=== PATIENT | female | born 2000 | race Caucasian/White ===

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

== ENCOUNTER 2021-04-15 16:00 | Inpatient (IN) | payer OTHER, MEDICAID, SELFPAY ==
[2021-04-15] VITALS (66 sets, daily range): BP systolic 94–137; BP diastolic 40–97; PULSE 74–122; TEMP 36.4–36.9; O2SAT 98–100; BMI 32.0
--- NOTE | 2021-04-15 16:28 | LDADM ---
This patient, ePnelope Melgar, was admitted to Labor/Delivery/Recovery 104 on 04/15/21 at 16:00. Plans for labor, pain management and were discussed with patient. Patient/family oriented to hospital policies and general routines including ID bracelet, bed and alarms, visiting hours, pain management, procedures, bathroom and other care routines, personal items, smoking policy, room service/diet and guest tray routines, infant security routines, and visiting hours. Patient/Family are encouraged to report perceived risks to care and to ask questions if they do not understand what they are told or what they should do. See OBIX for further documentation.
[2021-04-15 16:34] LABS: Basophils Percent Auto 0.4 % (0.2-1.2); Eosinophils Absolute Auto 0.2 K/mm3 (0-0.3); Eosinophils Percent Auto 1.7 % (0-4.4); Hematocrit 34.2 % (37.0-47.0); Hemoglobin 11.2 g/dL (12.0-15.0); Immature Granulocyte Absolute 0.08 K/mm3 (0.00-0.031); Immature Granulocyte Percent A 0.8 % (0-0.5); Lymphocytes Absolute Auto 2.22 K/mm3 (0.9-3.2); Lymphocytes Percent Auto 21.6 % (18.3-44.2); Mean Corpuscular HGB Conc 32.7 g/dl (32-36); Mean Corpuscular Hemoglobin 27.1 pg (26-34); Mean Corpuscular Volume 82.8 fl (80-100); Mean Platelet Volume 9.3 fl (7.4-10.4); Monocytes Absolute Auto 1.3 K/mm3 (0.1-0.6); Monocytes Percent Auto 12.5 % (2.6-8.5); Neutrophils Absolute Auto 6.5 K/mm3 (1.3-6.7); Platelet Count Result 285 k/mm3 (150-375); Red Blood Count 4.13 M/mm3 (4.2-5.4); Red Cell Distribution Width 13.7 % (11.5-14.5); White Blood Count 10.3 K/mm3 (4.5-10.0)
[2021-04-15] MEDS: LACTATED RINGERS 1,000 ML 125 ML IV CONT ×3 (17:02→23:20)
[2021-04-15] MEDS: OXYTOCIN 30 UNITS/NS 500 ML 30 UNITS/500 ML BAG 6 UNITS IV CONT (17:03)
[2021-04-15 18:05] LABS: Amphetamine Screen Urine Negative (Negative); Barbiturate Screen Urine Negative (Negative); Benzodiazepines Screen Urine Negative (Negative); Cannabinoid Screen Urine Negative (Negative); Cocaine Screen Urine Negative (Negative); Methadone Screen Urine Negative (Negative); Opiate Screen Urine Negative (Negative); Phencyclidine Screen Urine Negative (Negative)
--- NOTE | 2021-04-15 20:54 | WPDANESEPP ---
Anes - Eval Pre Procedure Procedure: labor epidural Date/Time: 04/15/21 20:54 Surgeon: letha Pre Op Diagnosis: IOL Patient Data Age: 21 Gender: F Height: 1.57 m Weight: 79.5 kg Last Vital Signs Temp 36.4 C 04/15/21 19:00 Pulse 90 04/15/21 20:30 BP 137/72 04/15/21 20:30 Allergies Allergy/AdvReac Type Severity Reaction Status Date / Time No Known Allergies Allergy Verified 11/06/20 23:10 Home Medications Medication Instructions Recorded Confirmed Type PNV cmb#95-ferrous fumarate-FA 1 tablet PO DAILY 03/23/21 03/23/21 History [] Laboratory Tests 04/15/21 04/15/21 04/15/21 16:20 16:20 16:20 WBC 10.3 K/mm3 H K/mm3 (4.5-10.0) RBC 4.13 M/mm3 L M/mm3 (4.2-5.4) Hgb 11.2 g/dL L g/dL (12.0-15.0) Hct 34.2 % L % (37.0-47.0) MCV 82.8 fl fl (80-100) MCH 27.1 pg pg (26-34) MCHC 32.7 g/dl g/dl (32-36) RDW 13.7 % % (11.5-14.5) Plt Count 285 k/mm3 k/mm3 (150-375) MPV 9.3 fl fl (7.4-10.4) Immature Gran % (Auto) 0.8 % H % (0-0.5) Neut % (Auto) 63.0 % % (45.5-73.1) Lymph % (Auto) 21.6 % % (18.3-44.2) [place] % (Auto) 12.5 % H % (2.6-8.5) Eos % (Auto) 1.7 % % (0-4.4) Baso % (Auto) 0.4 % % (0.2-1.2) Lymph # (Auto) 2.22 K/mm3 K/mm3 (0.9-3.2) [place] # (Auto) 1.3 K/mm3 H K/mm3 (0.1-0.6) Eos # (Auto) 0.2 K/mm3 K/mm3 (0-0.3) Baso # (Auto) 0.0 K/mm3 K/mm3 (0.0-0.1) Abs Immat Gran (auto) 0.08 K/mm3 H K/mm3 (0.00-0.031) Absolute Neuts (auto) 6.5 K/mm3 K/mm3 (1.3-6.7) Absolute Nucleated RBC 0.0 K/mm3 K/mm3 (0.0-0.012) Nucleated RBC % 0.0 % % (0.0-0.2) Urine Opiates Screen Urine Methadone Screen Ur Barbiturates Screen Ur Phencyclidine Scrn Ur Amphetamine Screen U Benzodiazepines Scrn Urine Cocaine Screen U Cannabinoids Screen RPR Pending Blood Type A Positive Antibody Screen Positive Antibody Identification Pending Antigen Identification Pending JHON, IgG Interpret Pending JHON, Poly Interpret Pending JHON, Complement Interp Pending 04/15/21 17:17 WBC RBC Hgb Hct MCV MCH MCHC RDW Plt Count MPV Immature Gran % (Auto) Neut % (Auto) Lymph % (Auto) [place] % (Auto) Eos % (Auto) Baso % (Auto) Lymph # (Auto) [place] # (Auto) Eos # (Auto) Baso # (Auto) Abs Immat Gran (auto) Absolute Neuts (auto) Absolute Nucleated RBC Nucleated RBC % Urine Opiates Screen Negative (Negative) Urine Methadone Screen Negative (Negative) Ur Barbiturates Screen Negative (Negative) Ur Phencyclidine Scrn Negative (Negative) Ur Amphetamine Screen Negative (Negative) U Benzodiazepines Scrn Negative (Negative) Urine Cocaine Screen Negative (Negative) U Cannabinoids Screen Negative (Negative) RPR Blood Type Antibody Screen Antibody Identification Antigen Identification JHON, IgG Interpret JHON, Poly Interpret JHON, Complement Interp Patient hx anesthesia problems: none Family hx anesthesia problems: none Results Review: All pre-operative results and documents have been reviewed as part of the pre-operative evaluation. [facility] Family History Family History (Updated 03/23/21 @ 12:34 by Jeana Eisenberg RN) Other No pertinent family history Social History Social History (Updated 11/06/20 @ 23:14 by Aneudy Mendez PA-C) Smoking status: Former smoker Tobacco type: e-cigarettes/vaping Substance use: elsy
[2021-04-16] VITALS (125 sets, daily range): BP systolic 88–142; BP diastolic 43–80; PULSE 76–163; RESP 12–18; TEMP 36.5–37.1; O2SAT 98–100
[2021-04-16] MEDS: LACTATED RINGERS 1,000 ML 125 ML IV CONT ×2 (00:28→03:12)
--- NOTE | 2021-04-16 04:43 | WPDOBADMIT ---
Obstetrics - Admit Note Admission Note: record reviewed. No pertinent additions to the history and/or any subsequent changes in the physical findings that are not consistent with the expected course of the were found. Additions to the history and/or subsequent changes in the physical findings follow. Here at 39 wks for MIL. Cervix on admit so pitocin started instead of cervadil. On my arrival, c/p. FHTs with variables
--- NOTE | 2021-04-16 04:44 | PM.OBPRVD ---
OB - Delivery Note Procedure Delivery date: 04/16/21 Procedure: events: Labor Induction Intrapartal events: Other (shoulder dystocia relieved by Vikas) Induction method: AROM and per pitocin protocol Delivery monitor: external FHT and external uterine Route of delivery: Laceration Description: Perineal - 2nd Degree Delivery repair: vicryl (3-0) Specimen: Yes (placenta) Quantitative Blood Loss (ml): 200 Anesthesia type: Epidural Disposition: floor [facility] Baby Date of : 04/16/21 Weeks of gestation at delivery: 39 gender: Male Weight (pounds): 8 Weight (ounces): 5 presentation: vertex position: Right Occiput Anterior (with left shoulder anterior) Placenta delivery description: Spontaneous cord vessel description: 3 Vessels score one minute: 9 score five minutes: 9
--- NOTE | 2021-04-16 04:46 | PM.OBDSVD ---
DS: Admitting Diagnosis Discharge Date 04/17/21 Admitting Diagnosis IUP 39 wks MIL DS: Discharge Diagnosis Discharge Diagnosis (1) (normal spontaneous vaginal delivery): Code(s): O80 - Encounter for full-term uncomplicated delivery Status: Acute OB - DS: Summary OB Procedures : Ultrasound OB Procedures Intrapartum: Spontaneous Vag Delivery OB Procedures: : None Peripartum Data Infant Delivery Method: Natural Vaginal Laceration Description: Perineal - 2nd Degree complications: none Status at Discharge Functional status at discharge: independent ambulation Overall status at discharge: patient is progressing back to baseline Time Spent with Patient Time attestation: Total time spent providing and/or coordinating discharge services: DS: Data Data Completed and Pending Labs on day of discharge: Labs from last 24 hours 04/15/21 04/15/21 04/15/21 17:17 16:20 16:20 WBC RBC Hgb Hct MCV MCH MCHC RDW Plt Count MPV Immature Gran % (Auto) Neut % (Auto) Lymph % (Auto) [place] % (Auto) Eos % (Auto) Baso % (Auto) Lymph # (Auto) [place] # (Auto) Eos # (Auto) Baso # (Auto) Abs Immat Gran (auto) Absolute Neuts (auto) Absolute Nucleated RBC Nucleated RBC % Urine Opiates Screen Negative Urine Methadone Screen Negative Ur Barbiturates Screen Negative Ur Phencyclidine Scrn Negative Ur Amphetamine Screen Negative U Benzodiazepines Scrn Negative Urine Cocaine Screen Negative U Cannabinoids Screen Negative RPR Pending Blood Type A Positive Antibody Screen Positive Antibody Identification Anti-Jake A Antigen Identification Cancelled JHON, IgG Interpret Negative JHON, Poly Interpret Negative JHON, Complement Interp Not Performed 04/15/21 16:20 WBC 10.3 H RBC 4.13 L Hgb 11.2 L Hct 34.2 L MCV 82.8 MCH 27.1 MCHC 32.7 RDW 13.7 Plt Count 285 MPV 9.3 Immature Gran % (Auto) 0.8 H Neut % (Auto) 63.0 Lymph % (Auto) 21.6 [place] % (Auto) 12.5 H Eos % (Auto) 1.7 Baso % (Auto) 0.4 Lymph # (Auto) 2.22 [place] # (Auto) 1.3 H Eos # (Auto) 0.2 Baso # (Auto) 0.0 Abs Immat Gran (auto) 0.08 H Absolute Neuts (auto) 6.5 Absolute Nucleated RBC 0.0 Nucleated RBC % 0.0 Urine Opiates Screen Urine Methadone Screen Ur Barbiturates Screen Ur Phencyclidine Scrn Ur Amphetamine Screen U Benzodiazepines Scrn Urine Cocaine Screen U Cannabinoids Screen RPR Blood Type Antibody Screen Antibody Identification Antigen Identification JHON, IgG Interpret JHON, Poly Interpret JHON, Complement Interp Discharge Plan Discharge Attending physician on discharge: Carolyn Waite Discharging Clinician: Carolyn Waite Anticipated Discharge Date/Time: 04/18/21 04:47 Patient Disposition: Home, Self-Care Activity: may shower and pelvic rest Diet: regular Patient Instructions: Antibiotic Form Stand Alone Forms: General Discharge Information Follow-up/Referrals: Carolyn Waite MD [Physician] - 6 Weeks Discharge Medications: New norethindrone-e.estradiol-iron [Minastrin 24 Fe] 1 mg-20 mcg(24) /75 mg (4) tablet,chewable 1 tablet PO DAILY Qty: 28 RF: 5 Continued PNV cmb#95-ferrous fumarate-FA [] 28 mg iron- 800 mcg Tablet 1 tablet PO DAILY RF: 0 Date of admission: 04/15/21 16:00 Primary Care Provider: PHYSICIAN,ASSEMBLING INSPECTOR Admitting Provider: Carolyn Waite Attending physician on admission: Carolyn Waite Condition: Stable
[2021-04-16] MEDS: OXYTOCIN 30 UNITS/NS 500 ML 30 UNITS/500 ML BAG 125 UNITS IV CONT (04:56)
[2021-04-16] MEDS: WITCH HAZEL 40 PADS 1 PAD TOPICAL (05:44)
[2021-04-16] MEDS: BENZOCAINE 20% AER SPR (*SP) 56 GM CAN 1 SPRAY TOPICAL (05:44)
[2021-04-16] MEDS: IBUPROFEN 600 MG TABLET PO ×2 (08:08→19:07)
--- NOTE | 2021-04-16 08:52 | OBPPTRN ---
0716 Patient transferred to post room #284 via W/C. Support person present. Oriented to unit, room, information board, rooming in, admission packet and security measures. Patient verbalizes understanding.
[2021-04-16 12:44] LABS: Rapid Plasma Reagin Non-Reactive (NonReactive)
[2021-04-16] MEDS: DOCUSATE SODIUM 100 MG CAPSULE PO (16:49)
[2021-04-17 00:15] VITALS: BP 89/46; PULSE 92; RESP 18; TEMP 36.5
[2021-04-17 05:45] LABS: Hematocrit 27.8 % (37.0-47.0); Hemoglobin 9.1 g/dL (12.0-15.0)
--- NOTE | 2021-04-17 07:40 | PM.OBPNVD ---
OB - PN: Subj Subjective Date/time seen: 04/17/21 07:40 Patient comments: no complaints and pain well controlled baby status: doing well and bottle feeding well OB - PN: Obj Data Labs CBC & Chem 7: 04/17/21 05:29 Labs: Laboratory Results - last 24 hr 04/15/21 04/17/21 16:20 05:29 Hgb 9.1 L Hct 27.8 L RPR Non-reactive OB - PN A/P Plan day: 1 Plan: routine care, discharge home, follow up 6 weeks and other (Loestrin 24 for bc) Time Spent With Patient Time: Total time spent is greater than 50% in coordination of care (as documented) at patient's floor/unit and/or counseling patient: Exam : Bimanual exam- vagina & uterus: other (Uterus firm, nt @U)
[2021-04-17 08:13] VITALS: BP 117/70; PULSE 96; RESP 12; TEMP 36.6; O2SAT 98
[2021-04-17] MEDS: DOCUSATE SODIUM 100 MG CAPSULE PO (08:13)
[2021-04-17] MEDS: POLYSACCHARIDE IRON COMPLEX 150 MG CAPSULE PO (08:13)
[2021-04-17] MEDS: IBUPROFEN 600 MG TABLET PO (08:13)
--- NOTE | 2021-04-17 13:10 | WPDANLDPN2 ---
Anes-Prog Note L&D Date/Time: 04/17/21 13:10 Comfortable throughout: labor and delivery Neuraxial method: epidural Epidural/Spinal procedure site: clean & non-tender Neuro status: Neuro function grossly intact. Cardiovascular status: normal Respiratory status: normal Airway patency: baseline Mental status: baseline Post-Op hydration status: normal Vital Signs: Last Vital Signs Temp 36.6 C 04/17/21 08:13 Pulse 96 04/17/21 08:13 Resp 12 04/17/21 08:13 BP 117/70 04/17/21 08:13 Pulse Ox 98 04/17/21 08:13 Pain score (VAS): 1/10 Post-procedural complaints: none Patient feedback: Patient satisfied with anesthetic care.
[2021-04-18 11:16] VITALS: BP 130/70; PULSE 92; RESP 20; TEMP 36.9; O2SAT 98
== END 2021-04-17 14:47 | disposition home or self-care (01) | DRG 807 ==
LOC: ANHLDR 04-16 04:48 → ANHOB2 04-16 07:28
PROVIDERS: Admitting Provider Obstetrics & Gynecology Gynecology; Visit Provider Obstetrics & Gynecology Gynecology
DX: O36.8330 Maternal care for abnormalities of the fetal heart rate or rhythm, third trimester, not applicable or unspecified (principal); Z37.0 Single live birth; Z23 Encounter for immunization; Z87.891 Personal history of nicotine dependence; O66.0 Obstructed labor due to shoulder dystocia; O70.1 Second degree perineal laceration during delivery; Z3A.39 39 weeks gestation of pregnancy
CPT/HCPCS: 36415; 80307; 85014; 85018; 85025; 86592; 86850; 86880; 86900; 86901; 86902; 88307; 90471; 90653; A9270; G0008; J2590; J2795; J7120

== ENCOUNTER 2023-11-25 22:16 | Emergency (ER) | payer OTHER, SELFPAY ==
[2023-11-25 22:18] VITALS: BP 136/97; PULSE 103; RESP 16; TEMP 36.6; O2SAT 99
[2023-11-25 22:35] LABS: Basophils Percent Auto 0.1 % (0.2-1.2); Eosinophils Absolute Auto 0.2 K/mm3 (0-0.3); Eosinophils Percent Auto 1.3 % (0-4.4); Hematocrit 45.6 % (37.0-47.0); Hemoglobin 15.4 g/dL (12.0-15.0); Immature Granulocyte Absolute 0.08 K/mm3 (0.00-0.031); Immature Granulocyte Percent A 0.5 % (0-0.5); Lymphocytes Absolute Auto 1.47 K/mm3 (0.9-3.2); Lymphocytes Percent Auto 8.8 % (18.3-44.2); Mean Corpuscular HGB Conc 33.8 g/dl (32-36); Mean Corpuscular Hemoglobin 27.8 pg (26-34); Mean Corpuscular Volume 82.3 fl (80-100); Mean Platelet Volume 9.3 fl (7.4-10.4); Monocytes Absolute Auto 1.3 K/mm3 (0.1-0.6); Monocytes Percent Auto 7.8 % (2.6-8.5); Neutrophils Absolute Auto 13.7 K/mm3 (1.3-6.7); Neutrophils Percent Auto 81.5 % (45.5-73.1); Platelet Count Result 441 k/mm3 (150-375); Red Blood Count 5.54 M/mm3 (4.2-5.4); Red Cell Distribution Width 13.7 % (11.5-14.5); White Blood Count 16.8 K/mm3 (4.5-10.0)
[2023-11-25 22:46] LABS: Alanine Aminotransferase 14 U/L (6-35); Albumin Level 5.4 g/dL (3.5-5.1); Alkaline Phosphatase 92 U/L (38-126); Anion Gap 14 mmol/L (4-12); Aspartate Amino Transferase 23 U/L (14-36); Bilirubin,Total 0.6 mg/dL (0.2-1.3); Blood Urea Nitrogen 16 mg/dL (7-17); Carbon Dioxide 18 mmol/L (22-30); Chloride 109 mmol/L (98-107); Estimated CRCL calculation 98 ml/min; Estimated Glomerular Filt Rate > 60; Glucose 116 mg/dL (65-110); Lipase 44 U/L (23-300); Potassium 4.1 mmol/L (3.4-5.0); Sodium 141 mmol/L (137-145)
[2023-11-25 23:50] VITALS: BP 138/88; PULSE 93; TEMP 36.4; O2SAT 100
[2023-11-26 00:43] VITALS: BP 117/80; PULSE 94; RESP 16; O2SAT 97
[2023-11-26 01:22] LABS: Appearance Urine Cloudy (Clear); Bacteria Urine 2+ /hpf; Bilirubin Urine Negative (Negative); Blood Urine Trace (Negative); Color Urine Yellow (Yellow); Glucose Urine UA Negative (Negative); Ketones Urine Trace mg/dL (Negative); Leukocyte Esterase Ur 1+ LEU/UL (Negative); Nitrate Urine Negative (Negative); Non Pathogenic Casts 0-2; Protein Urine Trace mg/dL (Negative); RBC Urine 0-2 /hpf (0-2); Specific Grav Ur 1.014 (1.001-1.035); Squamous Epithelial Cell Urine Moderate /hpf (Few); Urobilinogen Urine 0.2 mg/dL (<2.0)
[2023-11-26 01:30] LABS: Add Urine Microscopic? YES
[2023-11-26] MEDS: SODIUM CHLORIDE 0.9% IV 2,000 ML 999 ML IV CONT (02:25)
[2023-11-26] MEDS: ONDANSETRON INJ 4 MG/2 ML VIAL IV PUSH (02:26)
[2023-11-26] MEDS: FAMOTIDINE 20 MG/2 ML VIAL IV PUSH (02:26)
--- NOTE | 2023-11-26 03:58 | ED.GENADULT ---
HPI - General Adult General Chief complaint: Abdominal Pain Stated complaint: vomit/diarrhea Time Seen by Provider: 11/26/23 01:50 History of Present Illness HPI narrative: This is a 23-year-old female presenting with 1 day of nausea vomiting and diarrhea. Symptoms started yesterday middle night. Patient has been unable to keep water down today. Symptoms have been gradually improving. She denies fevers chills chest pain difficulty breathing abdominal pain or urinary symptoms. Related Data Home Medications Medication Instructions Recorded Confirmed vit no.95-ferrous 1 tablet PO DAILY 03/23/21 03/23/21 fumarate 28 mg-folic acid 800 mcg tablet () Allergies Allergy/AdvReac Type Severity Reaction Status Date / Time No Known Allergies Allergy Verified 11/26/23 00:44 [facility] Family History Family History Other No pertinent family history Social History Social History Smoking status: Former smoker Tobacco type: e-cigarettes/vaping Substance use: never Gender identity (if verbalized by the patient): Female Spiritual care concerns: No Exam Narrative: APPEARANCE: No apparent distress. Head: atraumatic. EYES: EOMI, NOSE: Atraumatic NECK: Trachea midline RESPIRATORY: No increased rate of breathing Clear to auscultation CARDIOVASCULAR: RRR, ABDOMINAL: Non-distended, soft nontender no guarding or rebound MUSCULOSKELETAl: No obvious deformities NEURO: Alert. Moving 4/4 extremities SKIN:: Warm, dry. Normal color PSYCHIATRIC: Normal affect Course Vital Signs Vital signs: Vital Signs Temperature 97.8 F 11/25/23 22:18 Pulse Rate 103 H 11/25/23 22:18 Respiratory Rate 16 11/25/23 22:18 Blood Pressure 136/97 H 11/25/23 22:18 Pulse Oximetry 99 11/25/23 22:18 Oxygen Delivery Room Air 11/25/23 22:18 Temperature 97.6 F 11/25/23 23:50 Pulse Rate 94 11/26/23 00:43 Respiratory Rate 16 11/26/23 00:43 Blood Pressure 117/80 11/26/23 00:43 Pulse Oximetry 97 11/26/23 00:43 Oxygen Delivery Room Air 11/25/23 22:18 Medical Decision Making MDM Narrative Medical decision making narrative: -Course: 23-year-old female presenting with nausea vomiting and diarrhea. Patient given fluid resuscitation, Pepcid and Zofran with improvement in her symptoms. Abdominal exam is benign. White count is 16.8 but with no tenderness in the belly I am not concerned about serious infection. Additionally the patient is very well-appearing with normal vital signs. On re-evaluation the patient is resting comfortably. She feels much better and is now tolerating p.o.. Patient will be discharged with antiemetics and return precautions. urine had 11-20 white blood cells. However the patient has no urinary symptoms. Discussed treating for UTI versus waiting for culture results and patient like to wait -DDX includes but is not limited to: gastroenteritis, food poisoning, gastritis cholecystitis appendicitis colitis -Independent interpretation of studies: white count 16. -Interventions: 2 L normal saline, Zofran, Pepcid -Shared decision making / Disposition: discharged -RX zofran Vital Signs Vital Signs: Vital Signs Temperature 97.8 F 11/25/23 22:18 Pulse Rate 103 H 11/25/23 22:18 Respiratory Rate 16 11/25/23 22:18 Blood Pressure 136/97 H 11/25/23 22:18 Pulse Oximetry 99 11/25/23 22:18 Oxygen Delivery Room Air 11/25/23 22:18 Temperature 97.6 F 11/25/23 23:50 Pulse Rate 94 11/26/23 00:43 Respiratory Rate 16 11/26/23 00:43 Blood Pressure 117/80 11/26/23 00:43 Pulse Oximetry 97 11/26/23 00:43 Oxygen Delivery Room Air 11/25/23 22:18 Lab Data 11/25/23 22:24 11/25/23 22:24 Labs: Lab Results 11/25/23 11/25/23 Range/Units 22:24 22:29 WBC 16.8 H (4.5-10.0) K/mm3 RBC 5
[2023-11-26 04:29] VITALS: BP 121/82; PULSE 92; RESP 15; O2SAT 99
== END 2023-11-26 04:31 | disposition home or self-care (01) ==
PROVIDERS: Emergency Provider Emergency Medicine
DX: K52.9 Noninfective gastroenteritis and colitis, unspecified (principal); F17.290 Nicotine dependence, other tobacco product, uncomplicated
CPT/HCPCS: 36415; 80053; 81001; 81025; 83690; 85025; 87077; 87086; 87088; 87186; 96361; 96374; 96375; 99284; J2405; J7030